=== PATIENT | female | born 1965 | race Caucasian/White ===

== ENCOUNTER 2024-04-11 10:15 | Emergency (ER) | payer MEDICAID, SELFPAY ==
[2024-04-11 10:34] VITALS: BP 143/77; PULSE 97; RESP 18; TEMP 36.8; O2SAT 96; BMI 28.3
--- NOTE | 2024-04-11 10:36 | XR_ITS ---
Examination: Wrist, left 3 views Technique: Wrist AP, oblique, lateral 3 views Date and time of exam: April 11, 2024 1050 hours INDICATIONS: Injury to the wrist today, wrist pain FINDINGS: No acute fracture No dislocation No foreign body IMPRESSION: No acute fracture
--- NOTE | 2024-04-11 10:36 | XR_ITS ---
Examination: Hand, left 3 views Technique: Hand AP, oblique, lateral 3 views Date and time of exam: April 11, 2024 1048 hours INDICATIONS: Injury to the hand and wrist today, pain FINDINGS: Tip fracture No dislocation No foreign body Soft tissue swelling dorsum of the hand IMPRESSION: No acute fracture noted Repeat this study short-term as clinically warranted
--- NOTE | 2024-04-11 11:41 | EDNOTE_ITS ---
<Statement entered by Fernanda Ruiz MD - 04/11/24 16:28> As co-signing physician, I was present and available for consult prn. I concur with the plan and care as documented by the midlevel provider. ED Extremity Problem RME/HPI General Chief complaint: Extremity Problem,Nontraumatic Stated complaint: LEFT ARM INJURY X YESTERAY Time Seen by Provider: 04/11/24 10:35 Arrival date/time: 04/11/24 10:15 59-year-old female presents to the emergency department complains of left wrist pain patient reports that she was lifting herself from a chair yesterday and developed pain in her left wrist and hand patient has a wrist brace in place Limitations: no limitations Related Data Home Medications ?Medication ?Instructions ?Recorded ?Confirmed aspirin 81 mg tablet,delayed 81 mg PO QDAY 02/12/19 04/27/23 release celecoxib 100 mg capsule 200 mg PO BID 02/12/19 04/27/23 metformin 500 mg tablet 500 mg PO BID 02/12/19 04/27/23 omeprazole 20 mg capsule,delayed 40 mg PO QDAY 02/12/19 04/27/23 release acetaminophen 500 mg tablet 500 mg PO QDAY 04/16/23 04/27/23 ferrous sulfate 325 mg (65 mg 325 mg PO QDAY 04/16/23 04/27/23 iron) tablet (FeroSul) furosemide 20 mg tablet 20 mg QDAY 04/16/23 04/27/23 gabapentin 600 mg tablet 600 mg PO BID 04/16/23 04/27/23 levothyroxine 75 mcg tablet 75 mcg PO QDAY 04/16/23 04/27/23 loratadine 10 mg tablet 10 mg PO QDAY 04/16/23 04/27/23 methocarbamol 750 mg tablet 750 mg HS 04/16/23 04/27/23 sucralfate 1 gram tablet 1 g PO QDAY 04/16/23 04/27/23 Allergies Allergy/AdvReac Type Severity Reaction Status Date / Time hydrocodone [From [place]] Allergy Severe Vomiting Verified 04/11/24 10:16 tramadol Allergy Severe Vomiting Verified 04/11/24 10:16 Review of Systems Review of Systems Systems Reviewed: All systems reviewed, normal except as documented Constitutional Constitutional: Reports system reviewed and no additional complaints, except as documented, Denies fever(s) and Denies headache(s) Eyes Eyes: Reports system reviewed and no additional complaints, except as documented and Denies blurry vision ENT Ears, Nose, Mouth, and Throat: Reports system reviewed and no additional complaints, except as documented, Denies headache(s), Denies nasal congestion and Denies nasal discharge Cardiovascular Cardiovascular: Reports system reviewed and no additional complaints, except as documented, Denies chest pain and Denies dyspnea Respiratory Respiratory: Reports system reviewed and no additional complaints, except as documented, Denies chest congestion, Denies cough and Denies dyspnea Gastrointestinal Gastrointestinal: Reports system reviewed and no additional complaints, except as documented and Denies abdominal pain Musculoskeletal Musculoskeletal: Reports system reviewed and no additional complaints, except as documented, Reports arthralgias, Denies deformity, Reports joint swelling, Reports stiffness and Denies tingling Integumentary/Breasts Skin/Breast: Reports system reviewed and no additional complaints, except as documented and Denies rash Neurologic Neurologic: Reports system reviewed and no additional complaints, except as documented, Reports as per HPI, Denies headache(s) and Denies tingling Past Medical History Past Medical History NEUROLOGIC: Negative Neurological Disorders CARDIAC: Negative Cardiac Disorders ED Exam General Limitations: Present no limitations General appearance: Present alert and in no apparent distress Head Head exam: Present atraumatic, normocephalic and normal inspection Eye Eye exam: Present normal appearance, PERRL and EOMI ENT ENT exam: Present normal exam, normal oropharynx and mucous membranes moist Neck Neck exam: Present normal inspection, full ROM and trachea midline Chest Chest inspection: Present normal inspection and symmetric chest wall rise Respiratory Respiratory exam: Present normal lung sounds bilaterally Cardiovascular Cardiovascular exam: Present regular rate, normal rhythm and normal heart sounds Abdominal Exam Abdominal exam: Present soft and normal bowel sounds Extremities Exam Extremities exam: Present full ROM, tenderness, normal capillary refill and joint swelling Back Exam Back exam: Present normal inspection and full ROM Neurological Exam Neurological exam: Present alert, oriented X3 and CN II-XII intact Psychiatric Psychiatric exam: Present normal affect and normal mood Skin Skin exam: Present warm, dry, intact and normal color Course Quality Measures none Orders Category Date Time Status XR hand comp LT min 3V Stat Exams 04/11/24 10:36 Completed XR wrist comp LT min 3V Stat Exams 04/11/24 10:36 Completed Vital Signs Vital signs: Vital Signs Temperature 98.3 F 04/11/24 10:34 Pulse Rate 97 04/11/24 10:34 Respiratory Rate 18 04/11/24 10:34 Blood Pressure 143/77 H 04/11/24 10:34 Pulse Oximetry (%) 96 04/11/24 10:34 Oxygen Delivery Method Room Air 04/11/24 10:34 O2 saturation 96% room air within normal limits Extremity Problem MDM Narrative MDM Narrative:: 59-year-old female presents to the emergency department complains of left wrist pain patient reports that she was lifting herself from a chair yesterday and developed pain in her left wrist and hand patient has a wrist brace in place On exam patient well-appearing patient does not appear toxic X-ray of the left wrist obtained as well as left hand patient has no acute fracture dislocation noted Patient discharged home in no distress to follow-up with primary care doctor in the next 24 to 48 hours and for any worsening symptoms to return to the ER immediately Patient data External records reviewed:: [facility] previous records Clinical information provided by:: patient Social determinants that could affect healthcare access:: none Patient has the following chronic illnesses:: See history How is presenting disease/condition affected by chronic disease/condition?: uneffected by Evaluation data The following diagnostics were reviewed and interpreted by me:: radiology exam(s) Lab and/or radiology exams considered but not ordered:: Radiology obtain Interpretation Summary: Reviewed by me Medications / Prescriptions Medications or Prescriptions considered but not ordered:: No meds Medication administrations:: No meds Consultations Consultation(s) initiated? (list below): No Diagnosis Extremity Problem Differential Diagnosis: other (Wrist pain, wrist fracture) Most likely diagnosis given after review of the tests above:: Sprain Admission Indicated Admission indicated?: not indicated Admission Request Was there a request for admission?: No Disposition Plan Disposition Plan: Discharge Discharge Attestation Discharge Attestation: The patient and all family members were given an opportunity to ask questions and understood the discharge instructions. Discharge instructions specifically effects, indications for sooner follow up or return to the emergency department, and the expected course of current diagnosis. Patient condition: Stable Discharge Plan Plan Patient Disposition: HOME (Self Care) Disposition Comment: Stable Prescriptions/Referrals Prescriptions/Med Rec: No Action metformin 500 mg Tablet 500 mg PO BID aspirin 81 mg Tablet,Delayed Release (Dr/Ec) 81 mg PO QDAY omeprazole 20 mg Capsule,Delayed Release(Dr/Ec) 40 mg PO QDAY celecoxib 100 mg Capsule 200 mg PO BID gabapentin 600 mg Tablet 600 mg PO BID sucralfate 1 gram Tablet 1 g PO QDAY acetaminophen 500 mg Tablet 500 mg PO QDAY levothyroxine 75 mcg tablet 75 mcg PO QDAY methocarbamol 750 mg Tablet 750 mg HS ferrous sulfate [FeroSul] 325 mg (65 mg iron) Tablet 325 mg PO QDAY furosemide 20 mg tablet 20 mg QDAY loratadine 10 mg Tablet 10 mg PO QDAY Referrals: Ajit Wong PA-C [Primary Care Provider] - In 1 week Problem List Clinical Impression: Sprain and strain of left wrist Patient/Caregiver Discharge Instructions Education Materials: ED Wrist Sprain Additional Instructions: Please follow up with your primary care doctor in the next 24-48hrs for any worsening symptoms return here immediately If your symptoms persist you may need referral to specialist and advanced imaging Print Language: Telugu Stand Alone Forms: Karrie Award Info., Patient Portal Info Letter PA/ROLANDO Supervising Physician PA/ROLANDO Supervising Physician: Dr. RUIZ
== END 2024-04-11 12:11 | disposition home or self-care (01) ==
PROVIDERS: Emergency Provider Emergency Medicine; PCP Physician Assistant Medical
DX: S63.502A Unspecified sprain of left wrist, initial encounter (principal); S66.912A Strain of unspecified muscle, fascia and tendon at wrist and hand level, left hand, initial encounter; X58.XXXA Exposure to other specified factors, initial encounter
CPT/HCPCS: 73110; 73130; 99283

== ENCOUNTER → 2024-04-26 | Outpatient (CLI) | payer MEDICAID, SELFPAY ==
--- NOTE | 2024-04-26 08:30 | XR_ITS ---
Examination: Breast ultrasound, unilateral, left complete Date and time of exam: April 26, 2024 0832 hours INDICATIONS: Mammogram February 13, 2024 focal asymmetry 6:00 position left breast Technique: Real-time nvaarrete scale ultrasonographic imaging performed left breast including all 4 quadrants as well as nipple retroareolar and axillary region. Findings: 6:00 oval mass lobular margins 6 x 7 mm IMPRESSION: BI-RADS Category 3: Probably benign findings. One additional 6 month left breast sonogram follow-up is needed to document stability of 6:00 nodule described above
--- NOTE | 2024-04-26 09:00 | XR_ITS ---
Examination: Diagnostic digital mammography, unilateral, left Computer aided detection 3-D breast Tomosynthesis, unilateral Date and time of exam: April 26, 2024 0829 hours INDICATIONS: Mammogram February 13, 2024 9 mm focal asymmetry 6:00 position left breast Technique: Nonmagnified MLO, CC views of the left breast have been obtained, reconstructed from 3-D Tomosynthesis images. R2 computer aided detection program utilized for evaluation of suspicious masses and/or abnormal calcifications. 3-D Tomosynthesis images obtained. Findings: Scattered areas of fibroglandular density 6:00 nodule is confirmed left breast irregular margins, 6 x 7 mm Impression: BI-RADS category 3: Probably benign findings One additional 6 month left mammogram follow-up is needed to document stability of 6:00 nodule described above
== END | disposition home or self-care (01) ==
PROVIDERS: PCP Physician Assistant Medical; Referring Provider Physician Assistant Medical; Visit Provider Physician Assistant Medical
DX: R92.332 Mammographic heterogeneous density, left breast (principal); N63.25 Unspecified lump in the left breast, overlapping quadrants
CPT/HCPCS: 76641; 77061; 77065; G0279

== ENCOUNTER 2024-10-15 19:12 | Emergency (ER) | payer MEDICAID, SELFPAY ==
[2024-10-15 19:19] VITALS: PULSE 96; O2SAT 98; BMI 29.5
[2024-10-15 19:25] VITALS: BP 108/58; PULSE 93; RESP 16; TEMP 36.6; O2SAT 96
--- NOTE | 2024-10-15 19:52 | XR_ITS ---
Examination: PA lateral chest 2 views TECHNIQUE: Upright PA and lateral chest 2 views Date and time: October 15, 20242031 hours INDICATIONS: Left anterior chest pain beginning 6:00 PM tonight. FINDINGS: Normal heart size. Lungs are clear. The osseous structures are intact. IMPRESSION: No active disease.
--- NOTE | 2024-10-15 19:52 | EKG_ITS ---
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
--- NOTE | 2024-10-15 19:53 | EDRME_ITS ---
Rapid Medical Screening Exam RME Arrival date/time: 10/15/24 19:12 Chief Complaint: Chest Pain Time Seen by Provider: 10/15/24 19:44 Vital signs: Vital Signs Temperature 97.9 F 10/15/24 19:25 Pulse Rate 93 10/15/24 19:25 Respiratory Rate 16 10/15/24 19:25 Blood Pressure 108/58 L 10/15/24 19:25 Pulse Oximetry (%) 96 10/15/24 19:25 Oxygen Delivery Method Room Air 10/15/24 19:25 Vital signs reviewed by provider: Yes RME Narrative: 59-year-old female with a past medical history of hypertension, hyperlipidemia, and diabetes presents to the ED with a complaint of left anterior chest pain that radiates to her left shoulder and arm. She states the pain began about 6 PM tonight. It is exacerbated by movement of her left arm and alleviated by nothing. It is an 8/10 currently as well as at its worst. She describes the pain as a sharp pain. She denies any shortness of breath or nausea however she did have some diaphoresis. She denies any injury to the left arm or chest. She has not had this pain before. She states her blood sugars have been in the 130s to 160s. She denies having any palpitations associated with this pain. 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 I have greeted and performed a focused initial assessment of this patient. A comprehensive ED assessment and evaluation of the patient, analysis of all test results, and completion of the medical decision making process will be conducted by additional ED providers.
[2024-10-15 20:24] LABS: Collection Type, Urine Clean Catch
[2024-10-15 20:38] LABS: Bilirubin,Urine Negative (Negative); Blood,Urine Negative (Negative); Budding Yeast,Urine Present; Clarity,Urine Clear (Clear/Hazy); Color,Urine Lt-Yellow (Lt Yel-Yel); Culture Indicated,Urine Not Indicated; Glucose, Urine 4+ (Negative); Ketones,Urine Negative (Negative); Leukocyte Esterase,Urine Negative (Negative); Nitrite,Urine Negative (Negative); PH,Urine 6.0 (5.0-7.0); Protein,Urine Negative (Neg - Trace); RBC,Urine 1 /hpf (0-3); Specific Gravity,Urine 1.034 (1.001-1.035); Squamous Epithelial Cell,Urine 1 /hpf (0-5); Urobilinogen,Urine 2.0 mg/dL (0.0-1.0); WBC,Urine 1 /hpf (0-5)
[2024-10-15 20:42] LABS: Amphetamine/Methamp Scrn,U Negative (Negative); Barbiturate Screen,Urine Negative (Negative); Benzodiazepines Screen,Urine Negative (Negative); Benzoylecgonine Screen, Ur Negative (Negative); Fentanyl Screen,Urine Negative (Negative); Opiate Screen,Urine Negative (Negative); THC Screen,Urine Negative (Negative)
[2024-10-15 21:11] LABS: Basophils # (Auto) 0.1 Thou/mm3 (0.0-0.2); Basophils % (Auto) 1 % (0-2.5); Eosinophils # (Auto) 0.4 Thou/mm3 (0.0-0.5); Eosinophils % (Auto) 5 % (0-10); Hematocrit 34.6 % (36.0-46.0); Hemoglobin 11.6 g/dL (12.0-16.0); Immature Granulocytes Auto 0.04 Thou/mm3 (0.00-0.00); Lymphocytes # (Auto) 1.5 Thou/mm3 (1.0-4.8); Lymphocytes % (Auto) 20 % (10-50); Mean Corpuscular HGB Conc 33.5 g/dl (31.0-37.0); Mean Corpuscular Hemoglobin 28.3 pg (25.0-35.0); Mean Corpuscular Volume 84 fL (80-100); Monocytes # (Auto) 0.5 Thou/mm3 (0.0-0.8); Monocytes % (Auto) 6 % (0-12); Neutrophils # (Auto) 5.0 Thou/mm3 (1.8-7.7); Neutrophils % (Auto) 67 % (37-80); Nucleated Red Blood Cell # 0.00 Thou/mm3 (0.00-0.00); Nucleated Red Blood Cell % 0 /100 WBC (0); Platelet Count 242 Thou/mm3 (140-440); RDW Standard Deviation 43.2 fL (36.4-46.3); Red Blood Count 4.10 Miln/mm3 (4.00-5.20); White Blood Count 7.5 Thou/mm3 (3.6-11.0)
[2024-10-15 21:30] LABS: B-Type Natriuretic Peptide 29 pg/mL (0-100); INR 1.0 (0.9-1.3); Partial Thromboplastin Time 27.4 Seconds (22.0-36.0); Prothrombin Time 11.0 Seconds (9.0-12.2)
[2024-10-15 21:42] LABS: Alanine Aminotransferase 9 U/L (10-49); Albumin, Serum 4.1 gm/dL (3.4-4.8); Albumin/Globulin Ratio 1.5 (1.2-2.2); Alkaline Phosphatase 70 U/L (46-116); Anion Gap 11 (7-16); Aspartate Amino Transferase 15 U/L (0-34); BUN/Creatinine Ratio 17 Ratio (12-20); Bilirubin,Total 0.3 mg/dL (0.3-1.2); Blood Urea Nitrogen 17 mg/dL (9-23); Calcium 9.0 mg/dL (8.3-10.6); Calcium (Corrected) 9.0 mg/dL (8.5-10.1); Carbon Dioxide 21.6 mMol/L (20.0-31.0); Chloride 113 mMol/L (98-107); Creatinine (Component) 1.0 mg/dL (0.6-1.3); Estimated Creatinine Clearance 70.9 mL/min (>60); Globulin 2.7 gm/dL (2.3-3.5); Glucose 192 mg/dL (74-106); LDH (Lactate Dehydrogenase) 181 U/L (120-246); Magnesium 1.6 mg/dL (1.6-2.6); Osmolality,Calculated 297 (275-295); Potassium 3.7 mMol/L (3.4-5.1); Sodium 146 mMol/L (136-145); Total Protein 6.8 gm/dL (5.7-8.2); Troponin I < 0.020 ng/mL (0.0-0.045); eGFR > 60 See Note
[2024-10-15 23:45] VITALS: BP 121/74; PULSE 73; RESP 16; TEMP 36.9; O2SAT 100
[2024-10-15 23:49] LABS: Troponin I < 0.020 ng/mL (0.0-0.045)
--- NOTE | 2024-10-16 | PD.EDCHEST ---
ED Chest Pain RME/HPI General Chief Complaint: Chest Pain Stated Complaint: CHEST WALL PAIN Time Seen by Provider: 10/15/24 19:44 Arrival date/time: 10/15/24 19:12 RME / HPI RME / HPI narrative: Dr. Ruiz?s Main ED Evaluation: 59yo female presents to the ED for a chief complaint of mid chest pain that radiates to her left shoulder x 1 day. Patient states her pain worsens on palpation. She denies any shortness of breath, cough, fever, chills or any other associated symptoms. Related Data Home Medications ?Medication ?Instructions ?Recorded ?Confirmed aspirin 81 mg tablet,delayed 81 mg PO QDAY 02/12/19 04/27/23 release celecoxib 100 mg capsule 200 mg PO BID 02/12/19 04/27/23 metformin 500 mg tablet 500 mg PO BID 02/12/19 04/27/23 omeprazole 20 mg capsule,delayed 40 mg PO QDAY 02/12/19 04/27/23 release acetaminophen 500 mg tablet 500 mg PO QDAY 04/16/23 04/27/23 ferrous sulfate 325 mg (65 mg 325 mg PO QDAY 04/16/23 04/27/23 iron) tablet (FeroSul) furosemide 20 mg tablet 20 mg QDAY 04/16/23 04/27/23 gabapentin 600 mg tablet 600 mg PO BID 04/16/23 04/27/23 levothyroxine 75 mcg tablet 75 mcg PO QDAY 04/16/23 04/27/23 loratadine 10 mg tablet 10 mg PO QDAY 04/16/23 04/27/23 methocarbamol 750 mg tablet 750 mg HS 04/16/23 04/27/23 sucralfate 1 gram tablet 1 g PO QDAY 04/16/23 04/27/23 Allergies Allergy/AdvReac Type Severity Reaction Status Date / Time hydrocodone (From [place]) Allergy Severe Vomiting Verified 04/11/24 10:16 tramadol Allergy Severe Vomiting Verified 04/11/24 10:16 Review of Systems Review of Systems Systems Reviewed: All systems reviewed, normal except as documented Past Medical History Past Medical History NEUROLOGIC: Negative Neurological Disorders, Cerebrovascular Accident, Transient Ischemic Attacks (TIA), Dementia, Alzheimer's Disease, Parkinson's Disease, Brain Tumor, Meningitis, Seizures, Epilepsy, Multiple Sclerosis, Cerebral Palsy, Amyotrophic Lateral Sclerosis (ALS/Cindy Gehrig's), Guillain-[place] Syndrome, Spina Bifida, Paralysis, Longoria's Palsy, Subdural Hematoma, Migraine, Head Trauma, Spinal Cord Injury or Traumatic Brain Injury CARDIAC: Positive Heart Murmur and Hypertension; Negative Cardiac Disorders, Cardiac Arrhythmia, Atrial Fibrillation, Angina, Coronary Artery Disease, Atherosclerotic Heart Disease, Peripheral Vascular Disease, Hypercholesterolemia, Aneurysm, Congestive Heart Failure, Congenital Heart Disease, Valvular Heart Disease, Rheumatic Fever, Cardiomyopathy, Edema, Pericarditis, Cellulitis, Deep Vein Thrombosis or Varicose Veins RESPIRATORY: Negative Chronic Obstructive Pulmonary Disease (COPD) or Asthma GASTROINTESTINAL: Positive Gastrointestinal Disorders and Gastroesophageal Reflux Disease; Negative Cirrhosis, Pancreatitis, Celiac Disease, Gall Bladder Disease, Gastrointestinal Bleed, Esophageal Varices, Keys's Esophagus, Colitis, Ulcerative Colitis, Diverticulitis, Diverticulosis, Ulcer, Colorectal Cancer, Irritable Bowel, Crohn's Disease, Hiatal Hernia, Hemorrhoids or Obesity GENITOURINARY: Negative Genitourinary Disorders, Renal Disease, Kidney Stones, Polycystic Kidney Disease, Neurogenic Bladder, Dialysis, Prostate Cancer or Benign Prostatic Hyperplasia REPRODUCTIVE: Negative Testicular Cancer MUSCULOSKELETAL: Negative Musculoskeletal Disorders, Muscular Dystrophy, Myasthenia Gravis, Marfan's Syndrome, Bone Cancer, Arthritis, Rheumatoid Arthritis, Osteoporosis, Degenerative Disk Disease, Gout, Scoliosis, Fibromyalgia, Fractures, Degenerative Joint Disease, Osteomyelitis or Poliovirus ENT: Negative Cataracts, Glaucoma, Blind, Retinal Detachment, Macular Degeneration, Ear Infection, Deafness, Head Trauma or Eye Prosthesis ENDOCRINE: Positive Diabetes Mellitus Type 2 and Hypothyroidism; Negative Endocrine Disorders, Diabetes Mellitus Type 1, Hypoglycemia, Fountain's Syndrome, Glennie's Disease, Hyperthyroidism, Parathyroid Disease, Pituitary Disease, Systemic Lupus Erythematosus, Syndrome of Inappropriate Antidiuretic Hormone (SIADH), Adrenal Disease or Graves' Disease HEMATOLOGIC: Negative Blood Disorders or Sickle Cell Disease PSYCHO/SOCIAL: Negative Psychiatric Problems, Schizophrenia, Recreational Drug Use, Bipolar Disorder, Anxiety, Self-Mutilation, Attention Deficit Disorder, Depression, Post Traumatic Stress Disorder or Eating Disorder OTHER HISTORY: Positive Blood Transfusions and Chicken Pox; Negative Autoimmune Disease, Autism, Blood Transfusion Reaction, Anesthesia Reactions, Clostridium Difficile, Cancer, Cervical Cancer, Colorectal Cancer, Lung Cancer, Ovarian Cancer, Prostate Cancer or Testicular Cancer Family History FAMILY HISTORY: Negative Family Cardiac Disorders, Family Cancer or Family Anesthesia Reaction Surgical History SURGICAL: Positive Abdominal Surgery and Tubal Ligation; Negative Pacemaker, Joint Replacement or Neurologic Surgery Social History SMOKING STATUS: Never smoker ED Exam Narrative Physical exam: GENERAL APPEARANCE: alert and oriented x 4, well-developed, well-nourished, no acute distress VITALS: All vitals were reviewed and the pulse ox is 100% on room air, which is normal according to my interpretation. HEENT: Normocephalic, atraumatic; pupils equal, round, reactive to light; EOMI; mucous membranes pink, moist; oropharynx clear NECK: Supple LUNGS: CTABL; no wheezes, no rales, no rhonchi HEART: Regular rate, regular rhythm; normal S1, S2; no murmurs ABDOMEN: non distended; normal BS; soft, no tenderness, no guarding, no rebound; no masses, no organomegaly, no hernia BACK: no CVA tenderness EXTREMITIES: atraumatic; no edema NEUROLOGIC: awake; alert and oriented x4; cranial nerves II-XII grossly intact; no focal sensory or motor deficits PSYCHIATRIC: appropriate mood and affect SKIN: warm, dry, normal color; no rashes Course Quality Measures none Orders Category Date Time Status EKG (ED ONLY) *Do not use* NOW Care 10/15/24 19:52 Completed EKG (ED Only) Stat Exams 10/15/24 19:52 Draft XR chest 2V Stat Exams 10/15/24 19:52 Completed B-Type Natriuretic Peptide Stat Lab 10/15/24 20:25 Completed CBC Stat Lab 10/15/24 20:25 Completed Comprehensive Metabolic Panel Stat Lab 10/15/24 20:25 Completed Drug Screen,Urine Stat Lab 10/15/24 20:18 Completed LDH (Lactate Dehydrogenase) Stat Lab 10/15/24 20:25 Completed Magnesium Stat Lab 10/15/24 20:25 Completed Partial Thromboplastin Time Stat Lab 10/15/24 20:25 Completed Prothrombin Time with INR Stat Lab 10/15/24 20:25 Completed Troponin I Stat Lab 10/15/24 20:25 Completed Troponin I Stat Lab 10/15/24 23:23 Completed Urinalysis, C/S if Indicated Stat Lab 10/15/24 20:18 Completed Vital Signs Vital signs: Vital Signs Temperature 97.9 F 10/15/24 19:25 Pulse Rate 93 10/15/24 19:25 Respiratory Rate 16 10/15/24 19:25 Blood Pressure 108/58 L 10/15/24 19:25 Pulse Oximetry (%) 96 10/15/24 19:25 Oxygen Delivery Method Room Air 10/15/24 19:25 Chest Pain MDM Narrative MDM Narrative:: Scribe Attestation: 10/16/24 - Alycia Flores am scribing for and in the presence of Dr. Ruiz. Patient data External records reviewed:: [facility] previous records (Per chart review, patient was seen here on 10/06/23 for dizziness.) Clinical information provided by:: patient Social determinants that could affect healthcare access:: none Patient has the following chronic illnesses:: DM, HTN, GERD How is presenting disease/condition affected by chronic disease/condition?: uneffected by Evaluation data The following diagnostics were reviewed and interpreted by me:: lab results, radiology exam(s) and EKG tracing(s) Lab and/or radiology exams considered but not ordered:: none Interpretation Summary: CBC normal, PT/INR/PTT normal, Glucose 192, Mg normal, Troponin x2 normal, BNP normal, UA unremarkable, UDS negative. EKG done at 1958, NSR, rate of 87, normal axis, normal intervals, no acute ST or T wave changes, according to my interpretation. [place] [facility] Report Signed Patient: MARIA FERNANDA BERNSTEIN. Record#: [id number] Birthdate: 1965 Age/Sex: 59 / F Location: [facility] Attending Dr: Ordering Physician: Anna Smith PA-C Date of Service: 10/15/24 Procedure(s): XR chest 2V Accession Number(s): [id number] cc: Yoandy Winslow MD; Gennaro Orourke MD; Anna Smith PA-C~ Examination: PA lateral chest 2 views TECHNIQUE: Upright PA and lateral chest 2 views Date and time: October 15, 20242031 hours INDICATIONS: Left anterior chest pain beginning 6:00 PM tonight. FINDINGS: Normal heart size. Lungs are clear. The osseous structures are intact. IMPRESSION: No active disease. Dictated By: Gennaro Orourke MD Signed By: <Electronically signed by Gennaro Orourke MD in OV> 10/15/246 Medications / Prescriptions Medications or Prescriptions considered but not ordered:: none Medication administrations:: see above, if any Consultations Consultation(s) initiated? (list below): No Diagnosis Chest Pain Differential Diagnosis: other (chest wall pain, ACS, pleurisy, PE) Most likely diagnosis given after review of the tests above:: see clinical impression below Admission Indicated Admission indicated?: not indicated Explain why admission is indicated or not indicated:: With significant improvement and no condition needing emergent intervention, there was no indication for admission. Admission Request Was there a request for admission?: No Disposition Plan Disposition Plan: Discharge Discharge Attestation Discharge Attestation: The patient and all family members were given an opportunity to ask questions and understood the discharge instructions. Discharge instructions specifically effects, indications for sooner follow up or return to the emergency department, and the expected course of current diagnosis. Patient condition: Stable Discharge Plan Plan Patient Disposition: HOME (Self Care) Prescriptions/Referrals Prescriptions/Med Rec: No Action metformin 500 mg Tablet 500 mg PO BID aspirin 81 mg Tablet,Delayed Release (Dr/Ec) 81 mg PO QDAY omeprazole 20 mg Capsule,Delayed Release(Dr/Ec) 40 mg PO QDAY celecoxib 100 mg Capsule 200 mg PO BID gabapentin 600 mg Tablet 600 mg PO BID sucralfate 1 gram Tablet 1 g PO QDAY acetaminophen 500 mg Tablet 500 mg PO QDAY levothyroxine 75 mcg tablet 75 mcg PO QDAY methocarbamol 750 mg Tablet 750 mg HS ferrous sulfate [FeroSul] 325 mg (65 mg iron) Tablet 325 mg PO QDAY furosemide 20 mg tablet 20 mg QDAY loratadine 10 mg Tablet 10 mg PO QDAY Referrals: Yoandy Winslow MD [Primary Care Provider] - In 1 week Problem List Clinical Impression: Left-sided chest wall pain Patient/Caregiver Discharge Instructions Education Materials: ED Chest Pain, Noncardiac Print Language: Cypriot Stand Alone Forms: Karrie Award Info., Patient Portal Info Letter
[2024-10-16] MEDS: KETOROLAC INJ 30 MG/ML VIAL IM (00:57)
[2024-10-16 01:57] VITALS: RESP 16
== END 2024-10-16 02:24 | disposition home or self-care (01) ==
PROVIDERS: Physician Assistant; Emergency Provider Emergency Medicine; PCP Family Medicine
DX: R07.89 Other chest pain (principal); R94.31 Abnormal electrocardiogram [ECG] [EKG]; I10 Essential (primary) hypertension
CPT/HCPCS: 36415; 71046; 80053; 80307; 81001; 83615; 83735; 83880; 84484; 85025; 85610; 85730; 93005; 96372; 99283; J1885

== ENCOUNTER 2025-01-20 09:15 | Emergency (ER) | payer MEDICAID, SELFPAY ==
[2025-01-20 09:21] VITALS: PULSE 82; RESP 16; O2SAT 99; BMI 29.3
--- NOTE | 2025-01-20 09:21 | EKG_ITS ---
[facility] Test Date: 2025-01-20 Pat Name: MARIA FERNANDA BERNSTEIN Department: Room: - Gender: Female [place] Line: : 1965 Requested By: Fernanda Zheng Order Number: [id number] Reading MD: Fernanda Zheng Measurements Intervals [place] Rate: 77 P: 70 NM: 206 QRS: -14 QRSD: 93 T: 40 QT: 389 QTc: 442 Interpretive Statements SINUS RHYTHM MODERATE VOLTAGE CRITERIA FOR LVH, CONSIDER NORMAL VARIANT [MEETS CRITERIA IN ONE OF: R(aVL), S(V1), R(V5), R(V5/V6)+S(V1)] Compared to ECG 10/15/2024 19:58:37 No significant changes /store/S0/[id number].pdf
[2025-01-20 09:27] VITALS: BP 144/75; PULSE 74; RESP 16; TEMP 36.5; O2SAT 100
[2025-01-20 10:22] VITALS: PULSE 88
--- NOTE | 2025-01-20 10:22 | XR_ITS ---
EXAMINATION:: Chest portable AP single view TECHNIQUE: Portable sitting AP chest single view Date and time: January 20, 2025, 10:28 a.m., comparison October 15, 2024 INDICATIONS: Send chest pain today. FINDINGS: Minimal prominence left ventricle Mild vascular congestion. No lobar pneumonia or pulmonary edema. Moderate osteopenia IMPRESSION: Mild vascular congestion. No lobar pneumonia or pulmonary edema
--- NOTE | 2025-01-20 10:49 | PD.EDCHEST ---
ED Chest Pain RME/HPI General Chief Complaint: Chest Pain Stated Complaint: CHEST WALL PAIN Arrival date/time: 01/20/25 09:15 RME / HPI RME / HPI narrative: DR. RUIZ MAIN ED EVALUATION: 59-year-old female with past medical history of type 2 diabetes, hypertension, hypothyroidism, and GERD presents to the Emergency Department for chest pain and shortness of breath. The patient reports that it is hard to breathe because it hurts. She also reports having a cough for about one week, for which her primary care provider prescribed antibiotics (exact medication unknown), which she is still currently taking. She denies nausea, vomiting, diarrhea, constipation, fever, or chills. Related Data Home Medications ?Medication ?Instructions ?Recorded ?Confirmed aspirin 81 mg tablet,delayed 81 mg PO QDAY 02/12/19 04/27/23 release celecoxib 100 mg capsule 200 mg PO BID 02/12/19 04/27/23 metformin 500 mg tablet 500 mg PO BID 02/12/19 04/27/23 omeprazole 20 mg capsule,delayed 40 mg PO QDAY 02/12/19 04/27/23 release acetaminophen 500 mg tablet 500 mg PO QDAY 04/16/23 04/27/23 ferrous sulfate 325 mg (65 mg 325 mg PO QDAY 04/16/23 04/27/23 iron) tablet (FeroSul) furosemide 20 mg tablet 20 mg QDAY 04/16/23 04/27/23 gabapentin 600 mg tablet 600 mg PO BID 04/16/23 04/27/23 levothyroxine 75 mcg tablet 75 mcg PO QDAY 04/16/23 04/27/23 loratadine 10 mg tablet 10 mg PO QDAY 04/16/23 04/27/23 methocarbamol 750 mg tablet 750 mg HS 04/16/23 04/27/23 sucralfate 1 gram tablet 1 g PO QDAY 04/16/23 04/27/23 Allergies Allergy/AdvReac Type Severity Reaction Status Date / Time hydrocodone (From [place]) Allergy Severe Vomiting Verified 04/11/24 10:16 tramadol Allergy Severe Vomiting Verified 04/11/24 10:16 Review of Systems Review of Systems Systems Reviewed: All systems reviewed, normal except as documented Past Medical History Past Medical History Comments PMH COMMENT: Past Medical History: Type 2 diabetes, hypertension, hypothyroidism, and GERD Family History: Breast and skin cancer in mother, cancers in other family members Surgical History: Tubal ligation, cholecystectomy Social History: Denies history of smoking, denies current alcohol use, denies recreational drug use Current Medications: See med rec Allergies: No known drug allergies ED Exam Narrative Physical exam: GENERAL APPEARANCE: alert and oriented x 4, well-developed, well-nourished, no acute distress VITALS: All vitals were reviewed and the pulse ox is 98% on room air, which is normal according to my interpretation. HEENT: Normocephalic, atraumatic; pupils equal, round, reactive to light; EOMI; mucous membranes pink, moist; oropharynx clear NECK: Supple LUNGS: Mild upper airway noise noted; lungs otherwise clear to auscultation bilaterally; no wheezes, rales, or rhonchi HEART: 1/6 systolic murmur at the left upper sternal border (LUSB); regular rate and rhythm ABDOMEN: non distended; normal BS; soft, no tenderness, no guarding, no rebound; no masses, no organomegaly, no hernia BACK: no CVA tenderness EXTREMITIES: atraumatic; no edema NEUROLOGIC: awake; alert and oriented x4; cranial nerves II-XII grossly intact; no focal sensory or motor deficits PSYCHIATRIC: appropriate mood and affect SKIN: warm, dry, normal color; no rashes Course Quality Measures none Orders Category Date Time Status Bedside COVID-19 Antigen Test NOW Care 01/20/25 10:22 Active Size Marker NOW Care 01/20/25 10:22 Active EKG (ED ONLY) *Do not use* NOW Care 01/20/25 09:21 Completed EKG (ED Only) Stat Exams 01/20/25 09:21 Draft XR chest 1V portable Stat Exams 01/20/25 10:22 Completed B-Type Natriuretic Peptide Stat Lab 01/20/25 10:42 Completed CBC Stat Lab 01/20/25 10:42 Completed Comprehensive Metabolic Panel Stat Lab 01/20/25 10:42 Completed Influenza A & B Rapid Panel Stat Lab 01/20/25 12:03 Completed Lipase Stat Lab 01/20/25 10:42 Completed Magnesium Stat Lab 01/20/25 10:42 Completed Partial Thromboplastin Time Stat Lab 01/20/25 10:42 Completed Prothrombin Time with INR Stat Lab 01/20/25 10:42 Completed Troponin I Stat Lab 01/20/25 10:42 Completed Ketorolac Inj [Toradol Inj] Med 01/20/25 13:56 Discontinued 15 mg IVP X1 ONE Vital Signs Vital signs: Vital Signs Temperature 97.7 F 01/20/25 09:27 Pulse Rate 74 01/20/25 09:27 Respiratory Rate 16 01/20/25 09:27 Blood Pressure 144/75 H 01/20/25 09:27 Pulse Oximetry (%) 100 01/20/25 09:27 Oxygen Delivery Method Room Air 01/20/25 09:27 Chest Pain MDM Narrative MDM Narrative:: IPita, am scribing for and in the presence of Dr. Ruiz. Patient data External records reviewed:: [facility] previous records Clinical information provided by:: patient Social determinants that could affect healthcare access:: none Patient has the following chronic illnesses:: type 2 diabetes, hypertension, hypothyroidism, and GERD How is presenting disease/condition affected by chronic disease/condition?: exacerbated by Evaluation data The following diagnostics were reviewed and interpreted by me:: lab results, radiology exam(s) and EKG tracing(s) (My interpretation: EKG performed at 0943 hours, sinus rhythm, rate 77, no acute ischemic changes) Lab and/or radiology exams considered but not ordered:: none Interpretation Summary: Procedure(s): XR chest 1V portable Accession Number(s): [id number] cc: Juan Snell MD; Gennaro Orourke MD; Fernanda Ruiz MD~ EXAMINATION:: Chest portable AP single view TECHNIQUE: Portable sitting AP chest single view Date and time: January 20, 2025, 10:28 a.m., comparison October 15, 2024 INDICATIONS: Send chest pain today. FINDINGS: Minimal prominence left ventricle Mild vascular congestion. No lobar pneumonia or pulmonary edema. Moderate osteopenia IMPRESSION: Mild vascular congestion. No lobar pneumonia or pulmonary edema Dictated By: Gennaro Orourke MD Medications / Prescriptions Medications or Prescriptions considered but not ordered:: none Medication administrations:: Medication Administration History Discontinued Medications Ketorolac Tromethamine (Ketorolac Inj 30 Mg/Ml Vial) 15 mg IVP X1 ONE Stop: 01/20/25 13:57 see above if any Consultations Consultation(s) initiated? (list below): No Diagnosis Chest Pain Differential Diagnosis: other (Pleuritic chest pain secondary to bronchitis or pneumonia, acute coronary syndrome, and musculoskeletal chest pain.) Most likely diagnosis given after review of the tests above:: Atypical chest pain Chest wall pain Admission Indicated Admission indicated?: not indicated Admission Request Was there a request for admission?: No Disposition Plan Disposition Plan: Discharge Discharge Attestation Discharge Attestation: The patient and all family members were given an opportunity to ask questions and understood the discharge instructions. Discharge instructions specifically effects, indications for sooner follow up or return to the emergency department, and the expected course of current diagnosis. Patient condition: Stable Discharge Plan Plan Patient Disposition: HOME (Self Care) Prescriptions/Referrals Prescriptions/Med Rec: No Action metformin 500 mg Tablet 500 mg PO BID aspirin 81 mg Tablet,Delayed Release (Dr/Ec) 81 mg PO QDAY omeprazole 20 mg Capsule,Delayed Release(Dr/Ec) 40 mg PO QDAY celecoxib 100 mg Capsule 200 mg PO BID gabapentin 600 mg Tablet 600 mg PO BID sucralfate 1 gram Tablet 1 g PO QDAY acetaminophen 500 mg Tablet 500 mg PO QDAY levothyroxine 75 mcg tablet 75 mcg PO QDAY methocarbamol 750 mg Tablet 750 mg HS ferrous sulfate [FeroSul] 325 mg (65 mg iron) Tablet 325 mg PO QDAY furosemide 20 mg tablet 20 mg QDAY loratadine 10 mg Tablet 10 mg PO QDAY Referrals: Juan Snell MD [Primary Care Provider] - In 1 week Problem List Clinical Impression: Atypical chest pain, Chest wall pain Patient/Caregiver Discharge Instructions Education Materials: ED Chest Wall Pain, Costochondritis Print Language: Sinhala Stand Alone Forms: Karrie Award Info., Patient Portal Info Letter
[2025-01-20 10:54] LABS: Basophils # (Auto) 0.1 Thou/mm3 (0.0-0.2); Basophils % (Auto) 1 % (0-2.5); Eosinophils # (Auto) 0.4 Thou/mm3 (0.0-0.5); Eosinophils % (Auto) 6 % (0-10); Hematocrit 35.4 % (36.0-46.0); Hemoglobin 12.0 g/dL (12.0-16.0); Immature Granulocytes Auto 0.04 Thou/mm3 (0.00-0.00); Lymphocytes # (Auto) 1.2 Thou/mm3 (1.0-4.8); Lymphocytes % (Auto) 17 % (10-50); Mean Corpuscular HGB Conc 33.9 g/dl (31.0-37.0); Mean Corpuscular Hemoglobin 29.2 pg (25.0-35.0); Mean Corpuscular Volume 86 fL (80-100); Monocytes # (Auto) 0.4 Thou/mm3 (0.0-0.8); Monocytes % (Auto) 6 % (0-12); Neutrophils # (Auto) 5.2 Thou/mm3 (1.8-7.7); Neutrophils % (Auto) 71 % (37-80); Nucleated Red Blood Cell # 0.00 Thou/mm3 (0.00-0.00); Nucleated Red Blood Cell % 0 /100 WBC (0); Platelet Count 216 Thou/mm3 (140-440); RDW Standard Deviation 44.3 fL (36.4-46.3); Red Blood Count 4.11 Miln/mm3 (4.00-5.20); White Blood Count 7.3 Thou/mm3 (3.6-11.0)
[2025-01-20 11:09] LABS: INR 1.0 (0.9-1.3); Partial Thromboplastin Time 27.1 Seconds (22.0-36.0); Prothrombin Time 10.6 Seconds (9.0-12.2)
[2025-01-20 11:12] LABS: B-Type Natriuretic Peptide 35 pg/mL (0-100)
[2025-01-20 11:13] LABS: Alanine Aminotransferase 12 U/L (10-49); Albumin, Serum 4.4 gm/dL (3.4-4.8); Albumin/Globulin Ratio 2.0 (1.2-2.2); Alkaline Phosphatase 69 U/L (46-116); Anion Gap 9 (7-16); Aspartate Amino Transferase 20 U/L (0-34); BUN/Creatinine Ratio 16 Ratio (12-20); Bilirubin,Total 0.5 mg/dL (0.3-1.2); Blood Urea Nitrogen 16 mg/dL (9-23); Calcium 9.3 mg/dL (8.3-10.6); Calcium (Corrected) 9.3 mg/dL (8.5-10.1); Carbon Dioxide 25.3 mMol/L (20.0-31.0); Chloride 108 mMol/L (98-107); Creatinine (Component) 1.0 mg/dL (0.6-1.3); Estimated Creatinine Clearance 70.7 mL/min (>60); Globulin 2.2 gm/dL (2.3-3.5); Glucose 148 mg/dL (74-106); Lipase 45 U/L (12-53); Magnesium 2.0 mg/dL (1.6-2.6); Osmolality,Calculated 287 (275-295); Potassium 4.6 mMol/L (3.4-5.1); Sodium 142 mMol/L (136-145); Total Protein 6.6 gm/dL (5.7-8.2); Troponin I < 0.020 ng/mL (0.0-0.045); eGFR > 60 See Note
[2025-01-20 11:20] VITALS: BP 137/74; PULSE 75; RESP 16; TEMP 36.5; O2SAT 98
[2025-01-20 12:40] LABS: Influenza A Ag Negative; Influenza B Ag Negative
[2025-01-20 14:10] VITALS: BP 116/60; PULSE 74; RESP 19; TEMP 36.9; O2SAT 97
[2025-01-20] MEDS: KETOROLAC INJ 30 MG/ML VIAL 15 MG IVP (14:11)
[2025-01-20 14:28] VITALS: BP 116/60; PULSE 74; RESP 19; TEMP 36.9; O2SAT 97
== END 2025-01-20 14:29 | disposition home or self-care (01) ==
PROVIDERS: Emergency Provider Emergency Medicine; PCP Family Medicine
DX: M94.0 Chondrocostal junction syndrome [Tietze] (principal)
CPT/HCPCS: 36415; 71045; 80053; 83690; 83735; 83880; 84484; 85025; 85610; 85730; 87502; 87811; 93005; 99283; J1885